=== PATIENT | female | born 1945 | race Caucasian/White ===

== ENCOUNTER → 2016-12-23 | Outpatient (CLI) | payer MEDICARE, OTHER ==
[~2016-12-23] MED LIST: LOPRESSOR 225 MG/TAB PO; LOTENSIN HCT 51 TAB PO; LOTENSIN5 MG PO; NEXIUM 20MG20 MG PO; NORCO 325 MG-51 TAB PO; PREMPRO 0.625/21 TAB PO; SYNTHROID 0.0.025 MG PO
== END ==
LOC: MC.RAD 13:40
DX: Z12.31 Encounter for screening mammogram for malignant neoplasm of breast (principal)

== ENCOUNTER 2017-06-03 09:59 | Outpatient (CLI) | payer MEDICARE, OTHER ==
[2017-06-03] VITALS (9 sets, daily range): BP systolic 123–163; BP diastolic 51–75; PULSE 72–82; TEMP 97.9–98
[~2017-06-03] VITALS: Ht 157.6 cm; Wt 66.3 kg
[2017-06-03] MEDS ORDERED: NEURONTIN600 MG/TAB PO (11:35)
[2017-06-03] MEDS ORDERED: SYNTHROID0.075 MG/T PO (11:36)
[2017-06-03] MEDS ORDERED: LOTENSIN20 MG PO (11:37)
[2017-06-03] MEDS ORDERED: ULTRAM 50MG TAB50 MG PO (11:38)
[2017-06-03] MEDS ORDERED: TOPROL XL 50MG50 MG PO (11:42)
[2017-06-03] MEDS ORDERED: NEXIUM 40MG40 MG PO (11:42)
== END 2017-06-03 17:04 | disposition home or self-care (01) ==
LOC: COL.CAR 09:59
DX: S32.030A Wedge compression fracture of third lumbar vertebra, initial encounter for closed fracture (principal); S22.080A Wedge compression fracture of T11-T12 vertebra, initial encounter for closed fracture; S32.040A Wedge compression fracture of fourth lumbar vertebra, initial encounter for closed fracture; S32.039A Unspecified fracture of third lumbar vertebra, initial encounter for closed fracture; S32.049A Unspecified fracture of fourth lumbar vertebra, initial encounter for closed fracture; S22.089A Unspecified fracture of T11-T12 vertebra, initial encounter for closed fracture; I10 Essential (primary) hypertension; E03.9 Hypothyroidism, unspecified; W19.XXXA Unspecified fall, initial encounter; Y92.9 Unspecified place or not applicable
CPT/HCPCS: C1713; J2250; J3010; J7120

== ENCOUNTER → 2017-07-13 | Outpatient (CLI) | payer MEDICARE, OTHER ==
[~2017-07-13] MED LIST changes: +LOTENSIN20 MG PO; +NEURONTIN600 MG/TAB PO; +NEXIUM 40MG40 MG PO; +SYNTHROID0.075 MG/T PO; +TOPROL XL 50MG50 MG PO; +ULTRAM 50MG TAB50 MG PO
== END ==
LOC: COL.RAD 06:49
DX: Z13.89 Encounter for screening for other disorder (principal); R10.9 Unspecified abdominal pain
CPT/HCPCS: J7050; Q9967

== ENCOUNTER 2017-09-02 09:30 | Outpatient (RCR) | payer MEDICARE, OTHER | END 2017-09-06 10:32 | disposition home or self-care (01) | LOC: WSPT 09:30 | DX: S22.000D Wedge compression fracture of unspecified thoracic vertebra, subsequent encounter for fracture with routine healing (principal); S32.040D Wedge compression fracture of fourth lumbar vertebra, subsequent encounter for fracture with routine healing; S32.030D Wedge compression fracture of third lumbar vertebra, subsequent encounter for fracture with routine healing; M40.05 Postural kyphosis, thoracolumbar region | CPT/HCPCS: G8981-GP; G8982-GP; G8983-GP ==

== ENCOUNTER → 2018-01-13 | Outpatient (CLI) | payer MEDICARE, OTHER | LOC: MC.RAD 10:20 | DX: Z12.31 Encounter for screening mammogram for malignant neoplasm of breast (principal) ==

== ENCOUNTER → 2019-01-04 | Outpatient (CLI) | payer MEDICARE, OTHER | LOC: COL.RAD 10:33 | DX: M40.295 Other kyphosis, thoracolumbar region (principal); K44.9 Diaphragmatic hernia without obstruction or gangrene; Z98.890 Other specified postprocedural states; Z87.311 Personal history of (healed) other pathological fracture ==

== ENCOUNTER → 2019-01-30 | Outpatient (CLI) | payer MEDICARE, OTHER | LOC: MC.RAD 10:13 | DX: Z12.31 Encounter for screening mammogram for malignant neoplasm of breast (principal) ==

== ENCOUNTER → 2019-03-19 | Outpatient (CLI) | payer MEDICARE, OTHER | LOC: COL.RAD 13:35 | DX: S22.41XD Multiple fractures of ribs, right side, subsequent encounter for fracture with routine healing (principal) ==

== ENCOUNTER → 2019-05-07 | Outpatient (CLI) | payer MEDICARE, OTHER | LOC: MHCPAIN 09:25 | DX: G89.29 Other chronic pain (principal); M47.817 Spondylosis without myelopathy or radiculopathy, lumbosacral region; M54.16 Radiculopathy, lumbar region; M53.3 Sacrococcygeal disorders, not elsewhere classified; M48.061 Spinal stenosis, lumbar region without neurogenic claudication | CPT/HCPCS: G0463 ==

== ENCOUNTER → 2019-05-31 | Outpatient (CLI) | payer MEDICARE, OTHER | LOC: MHCPAIN 05-10 15:21 | DX: M47.817 Spondylosis without myelopathy or radiculopathy, lumbosacral region (principal); M54.16 Radiculopathy, lumbar region | CPT/HCPCS: J1100; Q9967 ==

== ENCOUNTER → 2019-06-12 | Outpatient (CLI) | payer MEDICARE, OTHER | LOC: MHCPAIN 08:22 | DX: G89.29 Other chronic pain (principal); M47.817 Spondylosis without myelopathy or radiculopathy, lumbosacral region; M53.3 Sacrococcygeal disorders, not elsewhere classified | CPT/HCPCS: G0463 ==

== ENCOUNTER → 2019-07-09 | Outpatient (CLI) | payer MEDICARE, OTHER | LOC: MHCPAIN 12:31 | DX: M54.5 Low back pain (principal) | CPT/HCPCS: J1040; Q9967 ==

== ENCOUNTER → 2019-07-30 | Outpatient (CLI) | payer MEDICARE, OTHER | LOC: MHCPAIN 09:02 | DX: M47.817 Spondylosis without myelopathy or radiculopathy, lumbosacral region (principal); M54.16 Radiculopathy, lumbar region | CPT/HCPCS: G0463 ==

== ENCOUNTER 2019-08-08 09:00 | Outpatient (RCR) | payer MEDICARE, OTHER | END 2019-08-10 14:41 | disposition home or self-care (01) | LOC: WSPT 09:00 | DX: M47.27 Other spondylosis with radiculopathy, lumbosacral region (principal); M48.061 Spinal stenosis, lumbar region without neurogenic claudication; M53.3 Sacrococcygeal disorders, not elsewhere classified ==

== ENCOUNTER 2020-09-19 10:00 | Outpatient (RCR) | payer MEDICARE, OTHER | END 2020-11-09 | disposition still patient (30) | LOC: WSPT | DX: M62.81 Muscle weakness (generalized) (principal); R26.81 Unsteadiness on feet ==

== ENCOUNTER 2020-10-23 09:34 | Emergency (ER) | payer OTHER ==
[~2020-10-23] VITALS: Ht 149.9 cm; Wt 59.1 kg
[2020-10-23 10:57] LABS: BASO % 0.3 % (0.0-2.0); EOS # 0.1 (0.0-0.7); EOS % 1.1 % (0-4.0); GRAN # 5.6 (1.4-6.5); GRAN % 79.6 % (42.2-75.2); HEMATOCRIT 37.9 % (37.0-47.0); HEMOGLOBIN 13.2 g/dl (12.5-16.0); LYMPH # 0.8 (1.2-3.4); LYMPH % 11.3 % (20.0-51.0); MEAN CELL VOLUME 98 fl (80.0-100.0); MEAN CORPUSCULAR HEMOGLOBIN 34 pg (27.0-31.0); MEAN CORPUSCULAR HGB CONC 35 g/dl (33.0-37.0); MEAN PLATELET VOLUME 9.6 fl (7.4-10.4); MONO # 0.5 (0.1-0.6); MONO % 7.3 % (1.7-9.3); PLATELET COUNT 176 K/mm3 (130-400); RED BLOOD COUNT 3.87 M/mm3 (4.10-5.30); REDCELL DISTRIBUTION WIDTH-CV 12.3 % (11.5-14.5)
[2020-10-23 10:59] LABS: ALBUMIN 4.4 gm/dL (3.5-5.0); BILIRUBIN,TOTAL 0.9 mg/dL (0.0-1.0); CALCIUM 9.2 mg/dL (8.4-10.2); CREATININE, serum 0.67 (0.52-1.25); POTASSIUM 4.1 mmol/L (3.4-5.0); TOTAL PROTEIN 7.5 gm/dL (6.4-8.2)
[2020-10-23 11:47] VITALS: BP 177/83; PULSE 88; TEMP 98.1
== END 2020-10-23 11:47 | disposition home or self-care (01) ==
LOC: COL.ER 09:34
PROVIDERS: Nurse Practitioner
DX: S09.90XA Unspecified injury of head, initial encounter (principal); S80.01XA Contusion of right knee, initial encounter; E87.1 Hypo-osmolality and hyponatremia; Z88.1 Allergy status to other antibiotic agents; W18.09XA Striking against other object with subsequent fall, initial encounter; Y92.59 Other trade areas as the place of occurrence of the external cause; Y99.0 Civilian activity done for income or pay
CPT/HCPCS: J7030

== ENCOUNTER → 2021-02-09 | Outpatient (CLI) | payer MEDICARE, OTHER | LOC: MC.RAD 09:11 | DX: Z12.31 Encounter for screening mammogram for malignant neoplasm of breast (principal) ==

== ENCOUNTER → 2021-09-08 | Outpatient (CLI) | payer MEDICARE, OTHER ==
[2021-09-08 16:28] LABS: BASO % 0.3 % (0.0-2.0); EOS # 0.1 K/mm3 (0.0-0.7); EOS % 0.6 % (0.0-4.0); GRAN # 5.9 K/mm3 (1.4-6.5); GRAN % 76.7 % (42.2-75.2); HEMOGLOBIN 10.3 g/dl (12.5-16.0); LYMPH # 0.9 K/mm3 (1.2-3.4); MEAN CELL VOLUME 93 fl (80.0-100.0); MEAN CORPUSCULAR HEMOGLOBIN 33 pg (27-31); MEAN CORPUSCULAR HGB CONC 35 g/dl (33.0-37.0); MEAN PLATELET VOLUME 8.8 fl (7.4-10.4); MONO # 0.8 K/mm3 (0.1-0.6); MONO % 10.1 % (1.7-9.3); PLATELET COUNT 182 K/mm3 (130-400); RED BLOOD COUNT 3.15 M/mm3 (4.10-5.30)
[2021-09-08 16:42] LABS: ALANINE AMINOTRANSFERASE 17 U/L (0-55); ALBUMIN 3.9 gm/dL (3.4-4.8); ALKALINE PHOSPHATASE 72 U/L (40-150); ANION GAP 8 mmol/L (7-16); AST,SGOT 18 U/L (5-34); BILIRUBIN,TOTAL 0.9 mg/dL (0.2-1.2); BLOOD UREA NITROGEN 6 mg/dL (10-20); C-REACTIVE PROTEIN 5.45 mg/dL (0.00-0.50); CALCIUM 8.5 mg/dL (8.4-10.2); CARBON DIOXIDE 23 mmol/L (23-31); CHLORIDE 96 mmol/L (98-107); GLUCOSE 107 mg/dL (70-99); POTASSIUM 3.8 mmol/L (3.5-4.5); SODIUM 127 mmol/L (136-145); TOTAL PROTEIN 6.2 gm/dL (6.2-8.1)
[2021-09-08 16:53] LABS: ERYTHROCYTE SEDIMENTATION RATE 2 mm/hr (0-30); HEMATOCRIT 29.3 % (37.0-47.0)
[2021-09-08 17:12] LABS: TROPONIN-I < 0.010 ng/mL (0.00-0.033)
== END ==
LOC: COL.RAD 16:00 → COL.LAB 16:02
PROVIDERS: Internal Medicine
DX: R07.89 Other chest pain (principal)
CPT/HCPCS: Q9967

== ENCOUNTER → 2021-09-10 | Outpatient (CLI) | payer MEDICARE, OTHER ==
[2021-09-10 16:00] LABS: CREATININE, serum 0.69 mg/dL (0.57-1.11); POTASSIUM 4.2 mmol/L (3.5-4.5)
== END ==
LOC: COL.LAB 15:18
PROVIDERS: Internal Medicine
DX: E87.1 Hypo-osmolality and hyponatremia (principal)

== ENCOUNTER 2021-11-03 07:49 | Inpatient (IN) | payer MEDICARE, OTHER ==
[~2021-11-03] VITALS: Wt 60.7 kg
[2021-11-03] VITALS (18 sets, daily range): BP systolic 37–167; BP diastolic 48–84; PULSE 63–108; TEMP 98.2–98.4
[2021-11-03 08:36] LABS: BASO % 0.7 % (0.0-2.0); EOS # 0.2 K/mm3 (0.0-0.7); EOS % 4.9 % (0.0-4.0); GRAN # 2.3 K/mm3 (1.4-6.5); GRAN % 55.3 % (42.2-75.2); HEMOGLOBIN 11.8 g/dl (12.5-16.0); LYMPH # 1.1 K/mm3 (1.2-3.4); LYMPH % 25.7 % (20.0-51.0); MEAN CELL VOLUME 96 fl (80.0-100.0); MEAN CORPUSCULAR HEMOGLOBIN 35 pg (27-31); MEAN CORPUSCULAR HGB CONC 37 g/dl (33.0-37.0); MEAN PLATELET VOLUME 8.6 fl (7.4-10.4); MONO # 0.5 K/mm3 (0.1-0.6); MONO % 12.7 % (1.7-9.3); PLATELET COUNT 167 K/mm3 (130-400); RED BLOOD COUNT 3.36 M/mm3 (4.10-5.30); REDCELL DISTRIBUTION WIDTH-CV 12.5 % (11.5-14.5)
[2021-11-03 08:47] LABS: MAGNESIUM 1.3 mg/dL (1.6-2.6)
[2021-11-03 08:48] LABS: HEMATOCRIT 32.3 % (37.0-47.0)
[2021-11-03] MEDS ORDERED: ELIQUIS 5MG PO (08:50)
[2021-11-03] MEDS ORDERED: BENADRYL25 M2 PO (08:51)
[2021-11-03] MEDS ORDERED: TYLENOL 325MG325 MG PO (08:51)
[2021-11-03 08:52] LABS: PROTHROMBIN TIME 22.5 SECONDS (9.7-12.8)
[2021-11-03] MEDS ORDERED: ZYRTEC 10MG10 MG PO (08:52)
[2021-11-03] MEDS ORDERED: CITRACAL + D CA1 TAB PO (08:52)
[2021-11-03] MEDS ORDERED: NEXIUM 40MG40 MG PO (08:53)
[2021-11-03] MEDS ORDERED: LACTAID3000 UNIT PO (08:53)
[2021-11-03] MEDS ORDERED: LOTENSIN20 MG PO (08:53)
[2021-11-03] MEDS ORDERED: SYNTHROID0.05 MG/TA PO (08:55)
[2021-11-03] MEDS ORDERED: TOPROL XL 50MG50 MG PO (08:56)
[2021-11-03] MEDS ORDERED: REFRESH TEARS 330 ML OP (08:56)
[2021-11-03] MEDS ORDERED: MASON NATURAL2000 IU PO (08:57)
[2021-11-03] MEDS ORDERED: PRESERVISION1 SGL PO (08:57)
[2021-11-03] MEDS ORDERED: B-121000 MCG PO (08:57)
[2021-11-03] MEDS ORDERED: TEMOVATE OINT30 GM TOP (08:59)
[2021-11-03 09:08] LABS: THYROID STIMULATING HORMONE 0.642 uIU/mL (0.350-4.940)
--- NOTE | 2021-11-03 09:47 | NUR ---
IV magnesium initiated. Pt placed on laboratory monitor. Call light in reach. She denies needs at this time.
[2021-11-03 11:51] LABS: CALCIUM 8.7 mg/dL (8.4-10.2); CREATININE, serum 0.7 mg/dL (0.57-1.11); POTASSIUM 3.9 mmol/L (3.5-4.5)
--- NOTE | 2021-11-03 12:33 | NUR ---
Pt assisted to toilet in room. Gait is steady. She denies needs. Mag continues to infuse per orders. Call light in reach.
--- NOTE | 2021-11-03 13:49 | NUR ---
Pt tolerating PO without issue following cardioversion procedure. Applesauce provided with PO potassium. Meal tray ordered. Special Events Assistant aware of need for bed. Call light in reach.
--- NOTE | 2021-11-03 14:48 | NUR ---
Phone report given to JOHANA Das on medical unit. Awaiting delivery of food tray. Pt continues to rest comfortably in bed, denies needs.
--- NOTE | 2021-11-03 15:20 | NUR ---
Pt was taken to Medical rm 317 by wheelchair with personal belongings. She was settled into recliner so she could eat meal tray that was delivered to room. IV mag continues as ordered. Tele box in place for admission. Call light in reach.
--- NOTE | 2021-11-03 19:37 | NUR ---
RECEIVED CHANGE OF SHIFT REPORT FROM DAY SHIFT RN.
--- NOTE | 2021-11-03 19:42 | NUR ---
Patient admitted to room 317 from express unit. Medications, pharmacy, and allergies reviewed. Admisson paperwork completed. Medications given as ordered. VSS. Patient A&O. Tele on. Patient denies any pain, discomfort, SOA, or further needs at this time. Call light in reach. Report recieved from JOHANA Garsia.
[2021-11-04] VITALS (7 sets, daily range): BP systolic 115–150; BP diastolic 52–78; PULSE 66–76; TEMP 97.6–98.4
[2021-11-04 06:23] LABS: BASO % 0.4 % (0.0-2.0); EOS # 0.2 K/mm3 (0.0-0.7); EOS % 3.8 % (0.0-4.0); GRAN # 3.6 K/mm3 (1.4-6.5); GRAN % 65.8 % (42.2-75.2); HEMOGLOBIN 11.1 g/dl (12.5-16.0); LYMPH # 1.1 K/mm3 (1.2-3.4); LYMPH % 20.1 % (20.0-51.0); MEAN CELL VOLUME 98 fl (80.0-100.0); MEAN CORPUSCULAR HEMOGLOBIN 35 pg (27-31); MEAN CORPUSCULAR HGB CONC 36 g/dl (33.0-37.0); MEAN PLATELET VOLUME 8.9 fl (7.4-10.4); MONO # 0.5 K/mm3 (0.1-0.6); MONO % 9.4 % (1.7-9.3); PLATELET COUNT 160 K/mm3 (130-400); RED BLOOD COUNT 3.14 M/mm3 (4.10-5.30); REDCELL DISTRIBUTION WIDTH-CV 12.6 % (11.5-14.5)
[2021-11-04 06:27] LABS: HEMATOCRIT 30.9 % (37.0-47.0)
[2021-11-04 06:48] LABS: ALBUMIN 3.9 gm/dL (3.4-4.8); CALCIUM 8.5 mg/dL (8.4-10.2); CREATININE, serum 0.69 mg/dL (0.57-1.11); MAGNESIUM 2.2 mg/dL (1.6-2.6); POTASSIUM 4.4 mmol/L (3.5-4.5)
--- NOTE | 2021-11-04 07:21 | NUR ---
CHANGE OF SHIFT REPORT GIVEN TO DAY SHIFT FROYLAN VAUGHN.
--- NOTE | 2021-11-04 08:40 | NUR ---
Shift assessment complete. Pt sitting up in recliner. A&Ox4. Heart RRR. Lungs CTA. Vitals stable. QTC elevated at 504, cardiology updated and verbal okay given to administer morning dose of sotalol. Pt denies pain, SOA, dizziness, or other concerns. Did refuse citracal and ocuvite this morning stating "those pills are too big for me to swallow." Offered to crush pills and administer in applesauce but pt stated "I don't need them." Coughed for several minutes after attempting to swallow some of the larger pills and requested them crushed in applesauce next time. Continuing to monitor.
--- NOTE | 2021-11-04 11:25 | NUR ---
First visit from the stave and bolt equalizer. No needs right now.
--- NOTE | 2021-11-04 11:48 | NUR ---
Social Work student met with patient to discuss discharge planning. Patient lives alone in [place]. Patient sees Dr. Estephania Gagnon for primary care, and she receives her medications from [facility]. Patient does not utilize any durable medical equiptment, and states she is independent with her ADL's. Patient states that she does have a DPOA- listing Lola, her daughter, as the agent. Patient has two kids: Radha(ph#[phone]) and Lola(ph#[phone]). Patient has stated that she feels comfortable discharging back home when ready. *Discharge plan: Home*
--- NOTE | 2021-11-04 18:39 | NUR ---
UNEVENTFUL DAY. SOTALOL GIVEN PER ORDERS. REMAINS IN NSR ON TELE. NO COMPLAINTS.
--- NOTE | 2021-11-04 23:17 | NUR ---
Pt alert and oriented upon entry this evening, sitting up in chair. Denies acute pain. Medications administered and education provided. Shift assessment performed. Vital signs are stable. Pt's is in NSR and HR is in the 70's. Pt denies SOB or lightheadedness. Pt has a difficult swallowing larger pills, or sometimes smaller pills. Pt went to swallow the Sotalol pill this evening and began coughing and had to spit the pill out and re-take it. Pt had no trouble taking the other PO pills administred. No difficulty swallowing water. Pt reports no questions at this time. Will continue to monitor, no new concerns at this time.
[2021-11-05 04:47] VITALS: BP 99/37; PULSE 71; TEMP 98
[2021-11-05 05:23] VITALS: BP 125/61
--- NOTE | 2021-11-05 05:24 | NUR ---
Pt had an uneventful night. Remains alert and oriented when awake, rested the majority of the night. Continues to deny pain. Up to use restroom independently twice during the shift. Sotalol administered per orders this evening. Vital signs remain stable. HR is in 70's and is NSR. BP was 99/37 this morning. I re-took the pressure with the pt sitting straight up and it was 125/61. Pt denies dizziness or lightheadedness. Morning medications administered and tolerated well with water. Pt reports no questions. No new concerns at this time, will continue to monitor.
--- NOTE | 2021-11-05 05:24 | NUR ---
Re-assessed PT's BP while she was sitting upright. BP was 125/61. No futher concerns.
[2021-11-05 06:40] LABS: BASO % 0.3 % (0.0-2.0); EOS # 0.2 K/mm3 (0.0-0.7); EOS % 2.5 % (0.0-4.0); GRAN # 4.1 K/mm3 (1.4-6.5); GRAN % 68.1 % (42.2-75.2); LYMPH # 1.1 K/mm3 (1.2-3.4); LYMPH % 17.8 % (20.0-51.0); MEAN CELL VOLUME 100 fl (80.0-100.0); MEAN CORPUSCULAR HEMOGLOBIN 36 pg (27-31); MEAN CORPUSCULAR HGB CONC 36 g/dl (33.0-37.0); MEAN PLATELET VOLUME 9.1 fl (7.4-10.4); MONO # 0.7 K/mm3 (0.1-0.6); MONO % 11.1 % (1.7-9.3); PLATELET COUNT 142 K/mm3 (130-400); RED BLOOD COUNT 3.04 M/mm3 (4.10-5.30); REDCELL DISTRIBUTION WIDTH-CV 12.2 % (11.5-14.5)
[2021-11-05 06:45] LABS: CALCIUM 8.5 mg/dL (8.4-10.2); CREATININE, serum 0.74 mg/dL (0.57-1.11); MAGNESIUM 1.6 mg/dL (1.6-2.6); POTASSIUM 4.6 mmol/L (3.5-4.5)
[2021-11-05 06:48] LABS: HEMATOCRIT 30.4 % (37.0-47.0)
[2021-11-05 08:12] VITALS: BP 134/62; PULSE 80; TEMP 98.1
--- NOTE | 2021-11-05 09:00 | NUR ---
PT PLEASANT, AOX4, DENIES PAIN, ASSESSMENT PERFORMED, PT EAGER FOR DISCHARGE, HR SOUNDS IRREGULAR UPON AUSCULTATION, QTC WITHIN NORMAL LIMITS FOR SOTALOL ADMINISTRATION. NO OTHER NEEDS AT THIS TIME
--- NOTE | 2021-11-05 10:32 | NUR ---
Initial visit; Patient thanked Organic Preparation Technician for checking on her and offering God's blessings.
[2021-11-05 11:19] VITALS: BP 111/53; PULSE 69; TEMP 98.2
[2021-11-05] MEDS ORDERED: BETAPACE 80MG80 MG PO (13:55)
--- NOTE | 2021-11-05 14:52 | NUR ---
PT ESCORTED OUT VIA WHEELCHAIR, IV'S REMOVED, DISCHARGE PAPER WORK PROVIDED, NO OTHER QUESTIONS AT THIS TIME
== END 2021-11-05 14:53 | disposition home or self-care (01) | DRG 310 ==
LOC: COL.CAR 07:49 → MEDICAL 13:16 → INPTSU 13:16 → MEDICAL 15:50
PROVIDERS: ADMIT Internal Medicine Adult Congenital Heart Disease
PROC: 5A2204Z Restoration of Cardiac Rhythm, Single (ICD-10-PCS; principal; 2021-11-03)
DX: I48.0 Paroxysmal atrial fibrillation (principal); I10 Essential (primary) hypertension; E03.9 Hypothyroidism, unspecified; M19.90 Unspecified osteoarthritis, unspecified site; G25.81 Restless legs syndrome; K21.9 Gastro-esophageal reflux disease without esophagitis; D50.9 Iron deficiency anemia, unspecified; Z85.810 Personal history of malignant neoplasm of tongue
CPT/HCPCS: J2704; J3475; J7030

== ENCOUNTER 2022-01-19 08:58 | Outpatient (CLI) | payer MEDICARE, OTHER ==
[2022-01-19] VITALS (8 sets, daily range): BP systolic 124–160; BP diastolic 65–82; PULSE 64–75
[~2022-01-19] VITALS: Ht 149.9 cm; Wt 58.0 kg
[~2022-01-19 08:58] MED LIST changes: +B-121000 MCG PO; +BENADRYL25 M2 PO; +BETAPACE 80MG80 MG PO; +CITRACAL + D CA1 TAB PO; +ELIQUIS 5MG PO; +LACTAID3000 UNIT PO; +MASON NATURAL2000 IU PO; +PRESERVISION1 SGL PO; +REFRESH TEARS 330 ML OP; +SYNTHROID0.05 MG/TA PO; +TEMOVATE OINT30 GM TOP; +TYLENOL 325MG325 MG PO; +ZYRTEC 10MG10 MG PO
[2022-01-19] MEDS ORDERED: TYLENOL 8 HR PO (09:46)
[2022-01-19] MEDS ORDERED: NATURAL MAGNES200 MG PO (09:51)
--- NOTE | 2022-01-19 12:09 | NUR ---
Pt assisted up to restroom. Gait steady. Pudding provided for snack. Pt denies further needs at this time. Call light remains in reach.
--- NOTE | 2022-01-19 13:25 | NUR ---
Pt escorted out to elevator with steady gait. pl sql developer was in place throughout infusion, VS remained stable. No complaints during or following infusion. IV site wrapped with coban.
== END 2022-01-19 13:25 | disposition home or self-care (01) ==
LOC: EUO 08:58
DX: E83.42 Hypomagnesemia (principal)
CPT/HCPCS: J3475

== ENCOUNTER → 2022-03-03 | Outpatient (CLI) | payer MEDICARE, OTHER ==
[~2022-03-03] MED LIST changes: +NATURAL MAGNES200 MG PO; +TYLENOL 8 HR PO
== END ==
LOC: MC.RAD 09:15
DX: Z12.31 Encounter for screening mammogram for malignant neoplasm of breast (principal)

== ENCOUNTER → 2022-09-07 | Outpatient (CLI) | payer MEDICARE, OTHER ==
[2022-09-07 16:50] LABS: BASO % 0.8 % (0.0-2.0); EOS # 0.3 K/mm3 (0.0-0.7); EOS % 6.1 % (0.0-4.0); GRAN # 1.7 K/mm3 (1.4-6.5); GRAN % 34.6 % (42.2-75.2); HEMOGLOBIN 12.1 g/dl (12.5-16.0); LYMPH # 2.2 K/mm3 (1.2-3.4); LYMPH % 43.9 % (20.0-51.0); MEAN CELL VOLUME 96 fl (80.0-100.0); MEAN CORPUSCULAR HEMOGLOBIN 34 pg (27-31); MEAN CORPUSCULAR HGB CONC 36 g/dl (33.0-37.0); MEAN PLATELET VOLUME 9.1 fl (7.4-10.4); MONO # 0.7 K/mm3 (0.1-0.6); MONO % 14.4 % (1.7-9.3); PLATELET COUNT 165 K/mm3 (130-400); RED BLOOD COUNT 3.54 M/mm3 (4.10-5.30); REDCELL DISTRIBUTION WIDTH-CV 11.8 % (11.5-14.5)
[2022-09-07 17:04] LABS: ALANINE AMINOTRANSFERASE 17 U/L (0-55); ALBUMIN 3.8 gm/dL (3.4-4.8); ALKALINE PHOSPHATASE 65 U/L (40-150); ANION GAP 11 mmol/L (7-16); AST,SGOT 19 U/L (5-34); BILIRUBIN,TOTAL 0.4 mg/dL (0.2-1.2); BLOOD UREA NITROGEN 12 mg/dL (10-20); CALCIUM 9.4 mg/dL (8.4-10.2); CARBON DIOXIDE 23 mmol/L (23-31); CHLORIDE 100 mmol/L (98-107); CREATININE, serum 0.74 mg/dL (0.57-1.11); GLUCOSE 109 mg/dL (70-99); MAGNESIUM 1.5 mg/dL (1.6-2.6); SODIUM 134 mmol/L (136-145); TOTAL PROTEIN 6.6 gm/dL (6.2-8.1)
[2022-09-07 17:24] LABS: TSH w REFLEX 0.371 uIU/mL (0.350-4.940)
[2022-09-07 17:27] LABS: TROPONIN-I < 0.010 ng/mL (0.00-0.033)
== END ==
LOC: COL.LAB 16:24
PROVIDERS: Internal Medicine
DX: E83.42 Hypomagnesemia (principal); R07.89 Other chest pain; D50.9 Iron deficiency anemia, unspecified; R19.7 Diarrhea, unspecified

== ENCOUNTER 2023-04-22 10:30 | Outpatient (RCR) | payer MEDICARE, OTHER ==
[2005-01-18 10:50] VITALS: TEMP 97.4
== END 2023-04-23 | disposition home or self-care (01) ==
LOC: WSPT
DX: R26.81 Unsteadiness on feet (principal); M40.00 Postural kyphosis, site unspecified

== ENCOUNTER 2023-06-13 10:30 | Outpatient (RCR) | payer MEDICARE, OTHER ==
[2005-01-18 10:50] VITALS: TEMP 97.4
== END 2023-06-13 12:00 | disposition home or self-care (01) ==
LOC: WSPT 10:30
DX: R26.81 Unsteadiness on feet (principal); M40.00 Postural kyphosis, site unspecified

== ENCOUNTER → 2024-04-20 | Outpatient (CLI) | payer MEDICARE ==
[2005-01-18 10:50] VITALS: TEMP 97.4
== END ==
LOC: MC.RAD 14:45
DX: Z12.31 Encounter for screening mammogram for malignant neoplasm of breast (principal)